=== PATIENT | male | born 1975 | race Asian ===

== ENCOUNTER → 2016-08-12 | Outpatient (REF) | payer OTHER ==
[~2016-08-12] MED LIST: ASPI325T PO; FIOR1CAP PO; FLON0.054; MICA40TA PO; MOTR200T44 PO; PRIL40CA PO; RANI15TA PO; VITMTA PO; ZOCO40TA PO; ZYRT10TA2 PO
== END ==
LOC: M SMT 16:52
PROVIDERS: ATTEND Nurse Practitioner Women's Health
DX: R35.0 Frequency of micturition (principal)
CPT/HCPCS: 51798; 81001; 87086; G0463

== ENCOUNTER 2016-08-23 12:23 | Outpatient (RCR) | payer OTHER | END 2016-08-31 | LOC: M OT 12:23 | PROVIDERS: ATTEND Family Medicine | DX: Z51.89 Encounter for other specified aftercare (principal); H53.9 Unspecified visual disturbance; H53.143 Visual discomfort, bilateral ==